=== PATIENT | female | born 1945 | race Caucasian/White ===

== ENCOUNTER 2016-11-22 17:07 | Emergency (ER) | payer MEDICARE, OTHER ==
--- NOTE | 2016-11-24 02:06 | ER ---
ADMIT: 11/22/2016 RM/LOC: ER [facility] MR#: [id number] ACC#: [id number] [facility] [address] [place] [id number] [facility] [address] [place] [address] Emergency Room Report SEX: F AGE: 71 : 1945 DATE: 11/22/2016 CHIEF COMPLAINT: Chest pain. HISTORY OF PRESENT ILLNESS: This is a pleasant 71-year-old female, who presents to the ED via EMS after choking on a piece of chicken at [employer] just prior to arrival. Per 's report, the patient was eating a piece of chicken at [employer] when she began choking. A young lady nearby performed the Heimlich maneuver on her and was able to clear her airway. EMS reports no evidence of any airway compromise. She was 100% on room air when they arrived. The patient does have a history of CVA x5, so was overall a poor historian. also has little insight into her 's condition and her medications. The patient does state she is having some sternal chest pain. She denies any nausea, vomiting, shortness of breath. She is tolerating her secretions. No evidence of drooling. PAST MEDICAL HISTORY: Significant for diabetes, hypertension, CVA, and a seizure disorder. COURSE IN THE EMERGENCY ROOM: The patient was seen and examined. She complained of some left-sided facial numbness and tingling as well as increased spasticity of the left arm per 's report. Due to these changes from her baseline, CT of the head was ordered and returned negative for any evidence of acute infarction. Radiologist did note previous evidence of infarction consistent with her history of CVA x5. The patient's x-ray of the chest and lateral view of the neck showed no evidence of any foreign body. Basic lab was obtained. White count 7.5, hemoglobin 12.4, hematocrit 36.6, platelets 226. Sodium 141, potassium 3.4, chloride 108, carbon dioxide 24, creatinine 1.2. Physical exam showed tenderness about her sternum. No evidence of fracture on x-ray. The patient was given 1 g of Tylenol for her chest pain, which she states did relieve her pain and she is comfortable returning home. IMPRESSION: ADMIT: 11/22/2016 RM/LOC: ER [facility] MR#: [id number] [address] [id number] [facility] [address] [place] [address] Emergency Room Report SEX: F AGE: 71 : 1945 1. Dysphagia. 2. Sternal pain secondary to Heimlich maneuver. 3. History of multiple cerebrovascular accidents. DISPOSITION: The patient was discharged from the Emergency Department in stable condition. She was instructed to follow up with Dr. Mendoza in [place] as needed if the pain fails to improve or with other concerns. She was encouraged to return to the ER for any difficulty breathing or other concerning symptoms. She was told to continue her home medications as prescribed and to use ice as needed on her sternum and Tylenol as needed for pain. Questions were sought and answered to the best of our abilities to the patient's satisfaction. She was discharged in stable condition. STEPHEN Lombardo / Esteban Heart MD / cesar JOB #: [id number] CC: Dusty Zapien MD, Attending Physician Other Physician, Family Physician
== END 2016-11-22 21:00 | disposition home or self-care (01) ==
LOC: ER 17:07
DX: R07.2 Precordial pain (principal); R13.10 Dysphagia, unspecified; I10 Essential (primary) hypertension; E11.9 Type 2 diabetes mellitus without complications; Z86.73 Personal history of transient ischemic attack (TIA), and cerebral infarction without residual deficits; Z90.49 Acquired absence of other specified parts of digestive tract; Z88.1 Allergy status to other antibiotic agents; Z91.041 Radiographic dye allergy status